=== PATIENT | male | born 1985 | race Caucasian/White ===

== ENCOUNTER → 2019-12-22 | Outpatient (CLI) | payer BC ==
--- NOTE | 2019-12-22 12:45 | RAD ---
Examination: TESTICULAR/SCROTUM History: Reason: Left Testicle lump and pain; No injury per pt Comparison/Correlation: None Findings: Scrotal ultrasound was performed. Right testicle measures 4.3 cm x 2.3 cm x 2 cm. Left testicle measures 5.2 cm longitudinal by 2.3 cm anteroposterior by approximately 2.4 cm transverse. Right testicular echotexture is heterogeneously hypoechoic and there is relatively diminished flow as compared to the left testicle. Left testicle echotexture is normal. Left testicular flow is normal. At the site of palpable abnormality involving the left scrotum, a normal-appearing left epididymal head and left-sided varicoceles are noted. Epididymides are unremarkable bilaterally. Impression: At the site of the palpable abnormality of the left scrotum, varicoceles noted along with a normal-appearing left epididymal head. No suspicious solid masses. Heterogeneously hypoechoic right testicle with diminished flow. Findings raise question of chronic torsion although more acute torsion is not excluded. Correlate with symptoms. Underlying infiltrative process, including neoplastic etiologies, alternatively is not excluded. Correlate clinically in determining follow-up. Electronically signed by: Geo Degroot MD (12/22/2019 12:42 PM) [id number]
== END | disposition home or self-care (01) ==
LOC: US 11:34
PROVIDERS: ATTEND Family Medicine
DX: I86.1 Scrotal varices (principal); N50.9 Disorder of male genital organs, unspecified
CPT/HCPCS: 76870